=== PATIENT | male | born 1960 | race Caucasian/White ===

== ENCOUNTER 2023-05-03 12:56 | Outpatient (AMB) | payer MEDICARE, MEDICAID, SELFPAY ==
--- NOTE | 2023-05-03 12:58 | MHC.OFFVIS ---
Intake Vital Signs 05/03/23 13:08 Height 6 ft Weight 220 lb BMI 29.8 BP 198/94 H Blood Pressure Location Rt brachial Position Sitting Pulse 105 H Pulse Source Pulse Oximeter Pulse Oximetry (%) 98 Oxygen Delivery Method Room Air Intake Visit Reasons: Right leg pain/confirmed Allergies lisinopril Allergy (Unknown, Verified 05/03/23 13:12) Cough Medication List - Last Reconciled 05/03/23 by YUMIKO Ritter acetaminophen 325 mg PO QID PRN albuterol sulfate 90 mcg/actuation inhalation diphenhydramine HCl (Benadryl) 50 mg PO ONCE PRN docusate sodium 100 mg PO BID dulaglutide (Trulicity) mg subcut empagliflozin (Jardiance) 10 mg PO QAM empagliflozin (Jardiance) 25 mg PO DAILY gabapentin 1,200 mg PO BID glyburide 5 mg PO BID irbesartan 300 mg PO DAILY metformin 1,000 mg PO BID naloxone 4 mg/actuation (Narcan) 4 mg intranasal Q2M PRN oxycodone mg PO QID PRN rosuvastatin 10 mg PO BEDTIME HPI Right leg pain/confirmed HPI Details Patient is a pleasant 62 years old male with history of lumbar DDD, lumbar disc herniation, cervical pinched nerve, lumbar radiculitis, lumbar spinal stenosis, obesity, PVD, diabetes mellitus type 2, PAD, s/p right leg revascularization with h/o right femoral endarterectomy with bovine patch angioplasty, right profundoplasty, right lower extremity angiogram, right popliteal artery endarterectomy with bovine patch angioplasty, right femoral to above-knee bypass with 8 mm ring reinforced PTFE graft (04/17/2020 Dr. Hutson), left knee arthroscopy, right transmetatarsal amputation (09/11/22) presents today for evaluation for right leg pain. Pain is localized to right medial thigh along incision line, more tender in mid and distal areas with notable allodynia, hyperalgesia, no skin color discoloration, no atrophic skin changes, no temperature changes, no swelling or redness. Pain described as dull ache early in the morning and builds up as the day goes on. Patient reports chronic neck, back pain and right foot s/p TMA pain but not as troublesome as right thigh pain. Patient has vascular studies every 6 months, with most recent done on 03/23/23, for which patient was told no intervention is needed. Pain affects his daily functioning, mobility and social interactions. He has been unable to sleep normally due to increasing discomfort and pain in his right lower extremities. Patient has been managing his symptoms with gabapentin 600 mg QID for pain and diabetic peripheral neuropathy and oxycodone 5 mg QID. Patient reports current medication regime allows him to be less symptomatic and more functional. He rates his pain at 3/10 now and 6/10 on average in the past month. Patient reports injections at [facility] were with minimal benefit. Denies any fever, weakness, bladder or bowel dysfunction, or saddle anesthesia. Location Right leg, tenderness along right thigh mid and distal incision line Duration Chronic pain >3 years, constant, worse at evenings Characteristics of symptom or complaint Dull ache, shooting, burning, stabbing, sharp, tingling Aggravating or associated factors Walking, sitting, standing, worse as the day goes on Relieving factors Oxycodone, gabapentin, Tylenol Treatment Injections at [facility] for back and right leg pain PFSH Medical History Diabetic peripheral neuropathy PAD (peripheral artery disease) Obesity Lumbar spinal stenosis PVD (peripheral vascular disease) Mixed hyperlipidemia Lumbar radiculitis Lumbar disc herniation Hypertension Dry gangrene Diverticulitis Diarrhea Blurring of vision Bilateral scleritis Insomnia Diabetes mellitus DDD (degenerative disc disease), lumbar COPD (chronic obstructive pulmonary disease) Surgical History Hx of vascular surgery History of transmetatarsal amputation of right foot H/O arthroscopy of left knee History of tonsillectomy Social History (Updated 05/03/23 @ 13:21 by Paulette Carr) Alcohol intake: current Alcohol intake frequency: a few times a week Alcohol type: beer Comment: case of beer a week Patient Tobacco Use Status: Former Tobacco user Quit Date: 30 years Review of Systems Const All systems reviewed & are unremarkable except as noted in HPI and below Reports as per HPI, Denies body aches, Reports difficulty sleeping, Denies fatigue, Denies fever(s), Denies headache(s), Denies malaise, Denies night sweats and Denies weight loss Eyes Denies blurry vision and Denies change in vision ENT Denies headache(s), Reports neck pain and Denies sore throat Card Denies chest pain, Denies chest pain with activity, Denies irregular heart rhythm, Denies lightheadedness, Denies radiating jaw, neck or arm pain and Denies dyspnea on exertion Resp Denies cough and Denies dyspnea on exertion Musc Reports as per HPI, Reports back pain, Reports limited range of motion, Reports neck pain, Reports numbness, Denies radiating pain into limb, Reports stiffness and Reports tingling Neuro Denies headache(s), Reports numbness, Reports Sensory deficit (Neuro) (right lower leg) and Reports tingling Endo Denies fatigue Physical Exam Vital Signs: Last Vital Signs Pulse 105 H 05/03/23 13:08 BP 198/94 H 05/03/23 13:08 Pulse Ox 98 05/03/23 13:08 Oxygen Delivery Method Room Air 05/03/23 13:08 BMI result Body Mass Index 29.8 General: Appears afebrile. Alert and oriented. Mood and affect appropriate. Follows and participates in conversation appropriately. Respiratory effort is unlabored. No cough. Able to transition from sit to stand unassisted. Ambulates with bilaterally normal heel strike and toe off. Cardio Jugular venous distension: no JVD Rate: regular rate Peripheral pulses: radial pulses present, popliteal pulses present on the right diminished and on the left 2+ and dorsalis pedis present on the right diminished and on the left 2+ Skin General skin exam: no rashes or lesions noted and dry skin Neuro General: moves all extremities Gait exam (Neuro): Antalgic gait present (mildly) and No Assistive device used Motor exam (neuro): 5/5 motor strength present throughout, no tremor noted and Motor abnormalities not present Sensory Exam: Sensory deficit (Neuro) (right lower leg) Extrem Other: There is decreased sensation over the soles of the feet and the toes. Well healed incision right foot s/p TMA. No breaks in the skin. No soft tissue swelling, no redness or warmth. No clubbing, cyanosis or edema. No calf tenderness. General: Yes no pedal edema and Yes no calf tenderness Right lower extremity: hip/thigh (well incision medial thigh) Details: tenderness (TTP along incision line mid and distal parts of incision); no swelling, no ecchymosis, no crepitus and no unusual warmth Results Reviewed Results Reviewed: Assessment & Plan Assessment & Plan (1) Chronic pain of right lower extremity: Code(s): M79.604 - Pain in right leg; G89.29 - Other chronic pain (2) Hx of vascular surgery: Code(s): Z98.890 - Other specified postprocedural states (3) PAD (peripheral artery disease): Code(s): I73.9 - Peripheral vascular disease, unspecified (4) DDD (degenerative disc disease), lumbar: Code(s): M51.36 - Other intervertebral disc degeneration, lumbar region (5) Diabetic peripheral neuropathy: Code(s): E11.42 - Type 2 diabetes mellitus with diabetic polyneuropathy Plan Discussed interventional treatment options for chronic right leg and foot pain as well as chronic low back pain, including neuromodulation with SCS trial and implant, ITDD trial and implant and PNS trial. Informational pamphlets were provided to patient. Extensive discussion regarding the risks and benefits of SCS trial and implant procedures. Medical records release sent to [facility] for previous injections and procedures. Patient is currently prescribed oxycodone 5 mg QID prn by Vascular Surgery provider and gabapentin 600 mg QID by his PCP and breakthrough Tylenol which allows him to be less symptomatic and more functional. Patient denies Narcan at home, I will send him script for Narcan. Patient will notify our office on his decision for SCS trial and then I will place referral for psychology clearance in anticipation of SCS trial. All questions were answered to patient satisfaction. Follow up as needed. Medications: New naloxone 4 mg/actuation (Narcan) spray 1 dose into ONE nostril; alternate nostrils w each dose until help arrives 4 mg intranasal Q2M PRN 2 ea 0RF opioid overdose YUMIKO Ritter Changed From oxycodone PO QID PRN 0RF To oxycodone 5 mg PO QID PRN Coding Level of Care Code New Pt Level 4 (40123) Diagnoses Chronic pain of right lower extremity M79.604; G89.29 Hx of vascular surgery Z98.890 PAD (peripheral artery disease) I73.9 DDD (degenerative disc disease), lumbar M51.36 Diabetic peripheral neuropathy E11.42
[2023-05-03 13:08] VITALS: BP 198/94; PULSE 105; O2SAT 98; BMI 29.8
== END 2023-05-03 13:53 | disposition home or self-care (01) ==
PROVIDERS: Visit Provider Nurse Practitioner Family
DX: M79.604 Pain in right leg (principal); G89.29 Other chronic pain; Z98.890 Other specified postprocedural states; I73.9 Peripheral vascular disease, unspecified; M51.36 Other intervertebral disc degeneration, lumbar region; E11.42 Type 2 diabetes mellitus with diabetic polyneuropathy
CPT/HCPCS: 99204

== ENCOUNTER → 2023-05-03 12:56 | Outpatient (BNVA) | payer MEDICARE, MEDICAID, SELFPAY | PROVIDERS: Visit Provider Nurse Practitioner Family | DX: M79.604 Pain in right leg (principal); M51.36 Other intervertebral disc degeneration, lumbar region; E11.42 Type 2 diabetes mellitus with diabetic polyneuropathy; I73.9 Peripheral vascular disease, unspecified; G89.29 Other chronic pain; Z98.890 Other specified postprocedural states | CPT/HCPCS: 99202 ==